=== PATIENT | female | born 1950 | race Caucasian/White ===

== ENCOUNTER → 2017-05-02 | Outpatient (CLI) | payer OTHER ==
[~2017-05-02] MED LIST: AMARYL2 MG PO; ASPIR-LOW81 MG PO; COMPOUND CREAM; CYMBALTA30 MG PO; FEOSOL45 MG PO; GLUCOPHAGE1000 MG PO; IRON PO; LANTUS 10100 UNITS/ SC; LANTUS 3 M100 UNITS1 SC; LIPITOR20 MG PO; LYRICA75 MG PO; METFORMIN HCL1000 MG PO; NEURONTIN300 MG PO; PANTOPRAZOLE SO40 MG PO; PERCOCET 5/31 TABLET PO; ST. JOSEPH ASPI81 MG PO; TRESIBA FL200 UNIT/1 SC; VICTOZA0.6 MG/0.1 SC; VITAFUSION PO; VITAMIN C + RO500 MG PO; VITAMIN D35000 UNIT PO; ZANAFLEX4 M1 PO; ZANAFLEX4 MG PO; ZANTAC300 MG PO; ZESTORETIC 20-1 EAC1 NG; ZESTORETIC 20-1 EAC1 PO
== END | disposition home or self-care (01) ==
LOC: NUC 04-26 10:30
DX: E21.3 Hyperparathyroidism, unspecified (principal)
CPT/HCPCS: 78072; A9500; A9512